=== PATIENT | male | born 1955 | race Caucasian/White ===

== ENCOUNTER 2025-04-24 18:01 | Emergency (ER) | payer SELFPAY ==
[2025-04-24 18:18] VITALS: BP 146/75; PULSE 99; TEMP 37.2; O2SAT 97; BMI 26.0
--- NOTE | 2025-04-24 20:36 | ED_ITS ---
HPI HPI - General Adult General Chief complaint: Extremity Problem, Nontraumatic Stated complaint: CUT HIS HEAD Time Seen by Provider: 04/24/25 20:03 Source: patient Mode of arrival: walk-in History of Present Illness HPI narrative: This 69-year-old male presents for evaluation of a wound on the left side of his forehead that has been bleeding for most of the day. He states that he has a cancer in this area. He has had several cancers resected in the past. He has had some of them resected in [place]. 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 He states the area just darted oozing blood earlier today. EMS was called to the house earlier today and placed a dressing on it but he bled through the dressing and came to the emergency department. He is not having any dizziness or shortness of breath. He has an approximately 2-1/2 x 2-1/2 cm circular open area on the left side of his forehead that is oozing blood. There is no pulsatile bleeding. He also has an area on his left cheek that appears to be a basal cell skin cancer. This is not bleeding. Related Data Allergies Allergy/AdvReac Type Severity Reaction Status Date / Time No Known Drug Allergies Allergy Verified 04/24/25 18:22 Review of Systems ROS Status of ROS 10 or more systems reviewed and unremark able except as noted in history and below PFSH PFSH Social History Little interest or pleasure in doing things: not at all Feeling down, depressed, or hopeless: not at all Exam Narrative Exam Narrative: Vital signs and Nursing Notes reviewed: Patient is afebrile, pulse is mildly elevated at 99, blood pressure is elevated 146/75, he is not hypoxic with pulse ox of 97% on room air General: Awake, alert, oriented, no acute distress, lying comfortably on the stretcher HEENT: Normocephalic atraumatic, 2.5 x 2.5 cm circular open sore likely a skin cancer to the left temporal area of the forehead. It is actively oozing with no pulsatile bleeding. There is no sign of local cellulitis or infection. On the left cheek there is an irregular erythematous area likely a basal cell carcinoma with no active bleeding or sign of infection. Conjunctiva are normal in appearance Chest: Lungs are clear to auscultation with good air entry, there is no wheezing rhonchi or rales appreciated no accessory muscle use, patient is speaking in complete sentences-no chest wall tenderness to palpation CVS: Regular rate and rhythm S1-S2, no murmurs rubs or gallops, pulses are brisk and equal bilaterally Extremities: Moving all extremities, no lower extremity tenderness or swelling noted, negative Homans' sign, pulses are brisk and equal bilaterally Skin: Normal in appearance without rash,pallor, petechiae or purpura Neuro: No focal deficits Constitutional Vital Signs, click to edit/add: Last Vital Signs Temp 99.0 F 04/24/25 18:18 Pulse 99 H 04/24/25 18:18 Resp 20 04/24/25 18:18 BP 146/75 H 04/24/25 18:18 Pulse Ox 97 04/24/25 18:18 O2 Del Method Room Air 04/24/25 18:18 Course Vital Signs Vital signs: Vital Signs Temperature 99.0 F 04/24/25 18:18 Pulse Rate 99 H 04/24/25 18:18 Respiratory Rate 20 04/24/25 18:18 Blood Pressure 146/75 H 04/24/25 18:18 Pulse Oximetry 97 04/24/25 18:18 Oxygen Delivery Method Room Air 04/24/25 18:18 Temperature 99.0 F 04/24/25 18:18 Pulse Rate 99 H 04/24/25 18:18 Respiratory Rate 20 04/24/25 18:18 Blood Pressure 146/75 H 04/24/25 18:18 Pulse Oximetry 97 04/24/25 18:18 Oxygen Delivery Method Room Air 04/24/25 18:[address] [facility] Narrative Medical decision making narrative: This 69-year-old male presents for evaluation of bleeding from his left forehead likely a skin cancer that he has had for an extended period of time. There was no pulsatile bleeding. The bleeding started earlier today. The entire area was oozing gently. This was cleaned with sterile saline and a quick clot advance clotting gauze pad was applied topically over the bleeding area and a pressure dressing was applied with Coban. Patient was instructed to take the dressing off tomorrow and follow-up with dermatology. Discharge Plan Discharge Chief Complaint: Extremity Problem, Nontraumatic Clinical Impression: Bleeding from wound Patient Disposition: Home, Self-Care Time of Disposition Decision: 20:44 Condition: Good Print Language: Amharic Additional Instructions: Keep the dressing I applied in place for 24 hours then gently remove it. If you have recurrent bleeding you can use the gauze pads that were given to you at the time of discharge and the Coban or Devendra wrap to apply a pressure dressing. Please follow-up as soon as possible with dermatology to have this area biopsied and/or removed. Referrals: [facility] [Other] - 1 week [facility] plastic surgery [Other] - As soon as possible [facility] SILVERIO [Primary Care Provider, Internal Medicine] - 1 week Procedures ED Procedure Instructions Procedures Procedures: The bleeding site on the patient's left forehead was covered with quick clot advance clotting gauze and a pressure dressing with Coban was applied around his head. On reevaluation there is no recurrent bleeding.
[2025-04-24] MEDS: ACETAMINOPHEN 325 MG TABLET 650 MG PO (20:41)
== END 2025-04-24 20:56 | disposition home or self-care (01) ==
PROVIDERS: Emergency Provider Emergency Medicine; PCP Internal Medicine
DX: S01.80XA Unspecified open wound of other part of head, initial encounter (principal)
CPT/HCPCS: 99282